=== PATIENT | female | born 1955 | race Caucasian/White ===

== ENCOUNTER 2024-04-13 13:16 | Inpatient (IN) ==
[2024-04-13 15:01] LABS: ABS Basophils 0.1 10^3/uL (0.0-0.1); ABS Lymphocytes 0.2 10^3/uL (1.0-4.8); ABS Neutrophils 8.8 10^3/uL (1.5-7.6); ABS Nucleated RBC 0.01 10^3/ul; Eosinophil % 0.1 %; Hematocrit 32.9 % (35-45); Hemoglobin 11.3 g/dL (11.5-14.3); Lymphocyte % 2.5 %; Mean Corpuscular Hemoglobin 31.7 pg (27-33); Mean Corpuscular Hgb Conc 34.3 g/dL (31-36); Mean Corpuscular Volume 92.3 fL (80-97); Mean Platelet Volume 7.9 fL (7.5-11.2); Platelet Count 318 10^3/uL (150-450); Red Blood Count 3.56 10^6/uL (3.63-4.92); Red Cell Distribution Width 13.3 % (12-17); White Blood Count 10.2 10^3/uL (3.8-11.8)
[2024-04-13] MEDS: Ondansetron 4 mg VIAL 2 MG/ML 2 ml VIAL IV ONE ×3 (15:14→23:21)
[2024-04-13] MEDS: Lactated Ringers 1000 ml BAG IV.FLUID IV ONE (15:14)
[2024-04-13 15:48] LABS: C Reactive Protein 110.89 mg/L (<8.01); Lipase < 10 U/L (11.0-82.0); Magnesium 1.7 mg/dL (1.9-2.7)
[2024-04-13 17:02] LABS: Urine Appearance Clear; Urine Bilirubin Negative (Negative); Urine Blood Negative (Negative); Urine Color Light-Yellow; Urine Glucose Negative (Negative); Urine Ketones 1+ (Negative); Urine Nitrite Negative (Negative); Urine Protein Negative (Negative); Urine Specific Gravity 1.006 (1.002-1.030); Urine Urobilinogen Negative (Negative); Urine pH 5.5 (5.0-8.0)
[2024-04-13] MEDS: Magnesium Sulfate 2 gm BAG 2 GM/50 ML BAG IVPB ONE (17:08)
[2024-04-13 18:31] LABS: ALT 11 U/L (7-52); AST 17 U/L (13-39); Albumin 3.9 g/dL (3.2-5.2); Albumin/Globulin Ratio 2.1 (1-3); Alkaline Phosphatase 91 U/L (35-149); Anion Gap 13 mmol/L (2-16); Blood Urea Nitrogen 15 mg/dL (6-24); CO2 Carbon Dioxide 24 mmol/L (22-32); Chloride 106 mmol/L (101-111); Creatinine, Serum 0.84 mg/dL (0.51-0.95); Globulin 1.9 g/dL (2-4); Glucose 116 mg/dL (70-100); Potassium 4.1 mmol/L (3.5-5.0); Sodium 143 mmol/L (135-145); Total Bilirubin 0.6 mg/dL (0.2-1.0); Total Protein 5.8 g/dL (6.4-8.9); eGFR CKD-EPI 74.7 (>60)
[2024-04-13] MEDS: Iodixanol 320 (CONTRAST) 100 ML SDV IV ONE (20:35)
[2024-04-13] MEDS ORDERED: Morphine 2 MG/ML SYRINGE IV PRN (22:59)
[2024-04-13 23:00] LABS: LDH 194 U/L (140-271)
[2024-04-13] MEDS: Pantoprazole VIAL 40 MG VIAL IV SCH (23:20)
[2024-04-14] MEDS: HYDROmorphone 1 MG/1 ML SYRINGE IV SLOW PU PRN ×2 (01:50→16:04)
[2024-04-14] MEDS: cefTRIAXone 1 gm/50 mL D5W 1 GM/50 ML BAG IV SCH (03:02)
[2024-04-14] MEDS: metroNIDAZOLE IV 500 MG/100ML 500 MG/100 ML BAG IVPB SCH (03:55)
[2024-04-14] MEDS: Ondansetron 4 mg VIAL 2 MG/ML 2 ml VIAL IV PRN (04:49)
[2024-04-14 05:53] LABS: ABS Lymphocytes 0.3 10^3/uL (1.0-4.8); ABS Monocytes 0.9 10^3/uL (0.0-0.9); Eosinophil % 0.3 %; Hematocrit 31.9 % (35-45); Lymphocyte % 3.4 %; Mean Corpuscular Hemoglobin 31.6 pg (27-33); Mean Corpuscular Hgb Conc 34.3 g/dL (31-36); Mean Corpuscular Volume 92.2 fL (80-97); Mean Platelet Volume 7.9 fL (7.5-11.2); Platelet Count 322 10^3/uL (150-450); Red Blood Count 3.46 10^6/uL (3.63-4.92); White Blood Count 9.3 10^3/uL (3.8-11.8)
[2024-04-14 06:13] LABS: Albumin 3.7 g/dL (3.2-5.2); Albumin/Globulin Ratio 1.9 (1-3); Calcium 8.5 mg/dL (8.6-10.3); Creatinine, Serum 0.85 mg/dL (0.51-0.95); Potassium 3.9 mmol/L (3.5-5.0); Total Bilirubin 0.4 mg/dL (0.2-1.0); Total Protein 5.7 g/dL (6.4-8.9); eGFR CKD-EPI 73.7 (>60)
[2024-04-14] MEDS: Iodixanol 320 (CONTRAST) 100 ML SDV IV ONE (06:47)
[2024-04-14] MEDS ORDERED: Omeprazole 20 mg CAP (NF) PO SCH (09:00)
[2024-04-14] MEDS: Dextrose 50% Syringe 50 ml 25 GM/50 ML SYRINGE IV PUSH PRN (14:08)
[2024-04-14 14:46] LABS: Body Fluid Total Nucleated 944 /mcL
[2024-04-14 14:48] LABS: Body Fluid Appearance Cloudy; Body Fluid Source Pleural Fluid
[2024-04-14 14:49] LABS: Body Fluid Color Amber
[2024-04-14 15:19] LABS: Body Fluid Band 1 %; Body Fluid Meta 1 %; Body Fluid Mono 22 %; Body Fluid Total Cells Counted 200; Body Fluid Variant Lymph 1 %
[2024-04-15 08:56] LABS: Hematocrit 32.1 % (35-45); Hemoglobin 11.1 g/dL (11.5-14.3); Mean Corpuscular Hemoglobin 31.5 pg (27-33); Mean Corpuscular Hgb Conc 34.6 g/dL (31-36); Mean Corpuscular Volume 91.1 fL (80-97); Mean Platelet Volume 8.4 fL (7.5-11.2); Platelet Count 325 10^3/uL (150-450); Red Blood Count 3.52 10^6/uL (3.63-4.92); Red Cell Distribution Width 13.5 % (12-17); White Blood Count 5.9 10^3/uL (3.8-11.8)
[2024-04-15] MEDS ORDERED: Insulin LISPRO FOR INSULIN PUMP SUBCUT SCH (15:00)
[2024-04-16] MEDS ORDERED: PEG 3000 GI LAVAGE 1 GALLON PO ONE (16:00)
[2024-04-17] MEDS ORDERED: PEG 3000 GI LAVAGE 1 GALLON PO ONE (03:00)
[2024-04-17 06:27] LABS: Mean Platelet Volume 7.9 fL (7.5-11.2); Platelet Count 331 10^3/uL (150-450)
[2024-04-17 06:42] LABS: INR 1.42 (0.85-1.14)
[2024-04-17 14:12] LABS: Lactate Dehydrogenase, BF 160 U/L
[2024-04-17] MEDS: PEG 3000 GI LAVAGE 1 GALLON PO ONE ×2 (16:47→22:55)
[2024-04-17] MEDS: fentaNYL 100 mcg/2 ml 50 MCG/ML VIAL ONE (21:10)
[2024-04-18 06:34] LABS: Hematocrit 30.1 % (35-45); Hemoglobin 10.4 g/dL (11.5-14.3); Mean Corpuscular Hemoglobin 31.6 pg (27-33); Mean Corpuscular Hgb Conc 34.6 g/dL (31-36); Mean Corpuscular Volume 91.2 fL (80-97); Platelet Count 295 10^3/uL (150-450); White Blood Count 5.5 10^3/uL (3.8-11.8)
[2024-04-18 07:12] LABS: Albumin 3.3 g/dL (3.2-5.2); Albumin/Globulin Ratio 1.8 (1-3); C Reactive Protein 37.89 mg/L (<8.01); Calcium 7.9 mg/dL (8.6-10.3); Creatinine, Serum 0.74 mg/dL (0.51-0.95); Globulin 1.8 g/dL (2-4); Magnesium 1.9 mg/dL (1.9-2.7); Phosphorus 3.3 mg/dL (2.5-5.0); Potassium 3.8 mmol/L (3.5-5.0); Total Bilirubin 0.3 mg/dL (0.2-1.0); Total Protein 5.1 g/dL (6.4-8.9)
[2024-04-18 07:28] LABS: ABS Basophils 0.1 10^3/uL (0.0-0.1); ABS Lymphocytes 0.4 10^3/uL (1.0-4.8); ABS Monocytes 0.9 10^3/uL (0.0-0.9); ABS Neutrophils 4.1 10^3/uL (1.5-7.6); ABS Nucleated RBC 0.01 10^3/ul; Eosinophil % 0.9 %; Lymphocyte % 6.9 %; Nucleated Red Blood Cells % 0.1 %/100WBC (0.0-0.8); RBC Morphology Normal (Normal)
[2024-04-18 09:54] LABS: Fluid Type, Protein, Total PLEURAL FLUID; Total Protein, BF 4.1 g/dL
[2024-04-18] MEDS ORDERED: fentaNYL 100 mcg/2 ml 50 MCG/ML VIAL ONE ×2 (15:15→16:50)
[2024-04-18] MEDS ORDERED: Glycopyrrolate IV 0.2 MG/ML 1 ML VIAL ONE (15:15)
[2024-04-18] MEDS ORDERED: Ondansetron 4 mg VIAL 2 MG/ML 2 ml VIAL ONE ×2 (15:15→17:30)
[2024-04-18] MEDS ORDERED: Lidocaine 2% PF 5 ML VIAL ONE (15:15)
[2024-04-18] MEDS ORDERED: Midazolam 2 mg/2 ml VIAL 1 mg/ml 2 ml VIAL (2 mg) ONE (15:36)
[2024-04-18] MEDS ORDERED: Propofol 10 MG/ML 20 ML BTL ONE (15:46)
[2024-04-18] MEDS: fentaNYL 100 mcg/2 ml 50 MCG/ML VIAL IV PRN (16:54)
[2024-04-18] MEDS ORDERED: Naloxone 0.4 mg VIAL 0.4 mg/ml 1 ml VIAL IV PRN (16:55)
[2024-04-18] MEDS ORDERED: HYDROmorphone 1 MG/1 ML SYRINGE ONE (17:30)
[2024-04-18 18:15] LABS: Hematocrit 32.9 % (35-45); Hemoglobin 11.3 g/dL (11.5-14.3); Mean Corpuscular Hemoglobin 31.2 pg (27-33); Mean Corpuscular Hgb Conc 34.2 g/dL (31-36); Mean Corpuscular Volume 91.2 fL (80-97); Mean Platelet Volume 8.3 fL (7.5-11.2); Platelet Count 322 10^3/uL (150-450); Red Blood Count 3.61 10^6/uL (3.63-4.92); Red Cell Distribution Width 13.2 % (12-17); White Blood Count 5.8 10^3/uL (3.8-11.8)
[2024-04-19 06:37] LABS: ABS Basophils 0.1 10^3/uL (0.0-0.1); ABS Eosinophils 0.1 10^3/uL (0.0-0.5); ABS Lymphocytes 0.3 10^3/uL (1.0-4.8); ABS Monocytes 1.1 10^3/uL (0.0-0.9); ABS Neutrophils 5.1 10^3/uL (1.5-7.6); Eosinophil % 1.2 %; Hematocrit 30.4 % (35-45); Hemoglobin 10.6 g/dL (11.5-14.3); Lymphocyte % 4.8 %; Mean Corpuscular Hemoglobin 31.8 pg (27-33); Mean Corpuscular Hgb Conc 34.8 g/dL (31-36); Mean Corpuscular Volume 91.1 fL (80-97); Mean Platelet Volume 8.2 fL (7.5-11.2); Platelet Count 310 10^3/uL (150-450); Red Blood Count 3.34 10^6/uL (3.63-4.92); White Blood Count 6.6 10^3/uL (3.8-11.8)
[2024-04-19 07:17] LABS: Albumin 3.2 g/dL (3.2-5.2); Albumin/Globulin Ratio 1.8 (1-3); C Reactive Protein 52.87 mg/L (<8.01); Calcium 7.9 mg/dL (8.6-10.3); Creatinine, Serum 0.7 mg/dL (0.51-0.95); Globulin 1.8 g/dL (2-4); Magnesium 1.8 mg/dL (1.9-2.7); Total Bilirubin 0.3 mg/dL (0.2-1.0)
[2024-04-19] MEDS: Magnesium Sulfate 2 gm BAG 2 GM/50 ML BAG IVPB ONE (14:42)
[2024-04-19 23:50] LABS: Calprotectin >3000 mcg/g
[2024-04-20 05:59] LABS: Hematocrit 33.6 % (35-45); Hemoglobin 11.5 g/dL (11.5-14.3); Mean Corpuscular Hemoglobin 31.2 pg (27-33); Mean Corpuscular Hgb Conc 34.2 g/dL (31-36); Mean Corpuscular Volume 91.2 fL (80-97); Mean Platelet Volume 7.9 fL (7.5-11.2); Platelet Count 352 10^3/uL (150-450); Red Blood Count 3.68 10^6/uL (3.63-4.92); Red Cell Distribution Width 13.4 % (12-17); White Blood Count 5.2 10^3/uL (3.8-11.8)
[2024-04-20 06:38] LABS: Albumin 3.5 g/dL (3.2-5.2); Albumin/Globulin Ratio 1.8 (1-3); C Reactive Protein 55.84 mg/L (<8.01); Calcium 8.5 mg/dL (8.6-10.3); Creatinine, Serum 0.75 mg/dL (0.51-0.95); Globulin 1.9 g/dL (2-4); Magnesium 2.3 mg/dL (1.9-2.7); Potassium 5.1 mmol/L (3.5-5.0); Total Bilirubin 0.3 mg/dL (0.2-1.0); Total Protein 5.4 g/dL (6.4-8.9); eGFR CKD-EPI 85.6 (>60)
[2024-04-20 07:39] LABS: ABS Basophils 0.1 10^3/uL (0.0-0.1); ABS Eosinophils 0.1 10^3/uL (0.0-0.5); ABS Lymphocytes 0.4 10^3/uL (1.0-4.8); ABS Neutrophils 3.5 10^3/uL (1.5-7.6); Eosinophil % 2.4 %; Lymphocyte % 7.8 %; Nucleated Red Blood Cells % 0.1 %/100WBC (0.0-0.8); RBC Morphology Normal (Normal)
[2024-04-20] MEDS ORDERED: Famotidine IV 10 MG/ML 2 ml VIAL (20 mg) IV PRN (09:30)
[2024-04-20] MEDS ORDERED: methylPREDNISolone SOD SUCC 125 mg 2 ML VIAL IV PRN (09:30)
[2024-04-20] MEDS: Dexamethasone IV 4 MG/ML VIAL 1 ml VIAL IV SLOW PU ONE (11:01)
[2024-04-20] MEDS: PALONOSETRON HCL 0.05 MG/ML (0.25 MG) SYRINGE (0.05 MG/ML) IV ONE (11:06)
[2024-04-20] MEDS: Famotidine IV 10 MG/ML 2 ml VIAL (20 mg) IV ONE (11:09)
[2024-04-20] MEDS: APREPITANT 130 MG/18 ML VIAL IV ONE (11:14)
[2024-04-20] MEDS: NS 0.9% 1000 ml BAG 1,000 ML IV SCH (11:30)
[2024-04-20] MEDS: Lidocaine PATCH 5% PATCH TRANSDERM ONE (11:36)
[2024-04-20] MEDS: NS 0.9% IVPB ONE ×2 (12:36→15:50)
[2024-04-20] MEDS: PACLITAXEL IVPB ONE (12:36)
[2024-04-20] MEDS: Albuterol 2.5mg/3 ml (0.083%) NEB.SOLN INH PRN (14:54)
[2024-04-20] MEDS: CARBOPLATIN IVPB ONE (15:50)
[2024-04-20 16:21] LABS: Albumin 3.5 g/dL (3.2-5.2); Albumin/Globulin Ratio 1.8 (1-3); Calcium 8.1 mg/dL (8.6-10.3); Creatinine, Serum 0.71 mg/dL (0.51-0.95); Globulin 1.9 g/dL (2-4); Magnesium 1.9 mg/dL (1.9-2.7); Phosphorus 1.7 mg/dL (2.5-5.0); Potassium 3.6 mmol/L (3.5-5.0); Total Bilirubin 0.4 mg/dL (0.2-1.0); Total Protein 5.4 g/dL (6.4-8.9); eGFR CKD-EPI 91.4 (>60)
[2024-04-21 07:03] LABS: ABS Lymphocytes 0.2 10^3/uL (1.0-4.8); ABS Monocytes 0.1 10^3/uL (0.0-0.9); Hematocrit 33.4 % (35-45); Hemoglobin 11.5 g/dL (11.5-14.3); Lymphocyte % 4.5 %; Mean Corpuscular Hemoglobin 31.3 pg (27-33); Mean Corpuscular Hgb Conc 34.4 g/dL (31-36); Mean Platelet Volume 8.9 fL (7.5-11.2); Nucleated Red Blood Cells % 0.1 %/100WBC (0.0-0.8); Platelet Count 307 10^3/uL (150-450); Red Blood Count 3.67 10^6/uL (3.63-4.92); Red Cell Distribution Width 13.1 % (12-17); White Blood Count 4.2 10^3/uL (3.8-11.8)
[2024-04-21 08:34] LABS: ALT 10 U/L (7-52); Albumin 3.6 g/dL (3.2-5.2); Albumin/Globulin Ratio 1.7 (1-3); Alkaline Phosphatase 79 U/L (35-149); Anion Gap 12 mmol/L (2-16); Blood Urea Nitrogen 9 mg/dL (6-24); C Reactive Protein 33.93 mg/L (<8.01); CO2 Carbon Dioxide 23 mmol/L (22-32); Calcium 8.1 mg/dL (8.6-10.3); Chloride 106 mmol/L (101-111); Creatinine, Serum 0.59 mg/dL (0.51-0.95); Globulin 2.1 g/dL (2-4); Glucose 126 mg/dL (70-100); Sodium 141 mmol/L (135-145); Total Bilirubin 0.4 mg/dL (0.2-1.0); Total Protein 5.7 g/dL (6.4-8.9); eGFR CKD-EPI 96.9 (>60)
[2024-04-21 09:42] LABS: Magnesium 2.1 mg/dL (1.9-2.7)
[2024-04-21 10:50] LABS: Potassium Redraw 3.9 mmol/L (3.5-5.0)
[2024-04-21] MEDS: Diphenoxylat/Atrop 2.5-0.025mg TAB PO ONE (11:13)
[2024-04-21] MEDS: Diphenoxylat/Atrop 2.5-0.025mg TAB PO PRN (18:32)
[2024-04-22 07:40] LABS: Calcium 7.8 mg/dL (8.6-10.3); Creatinine, Serum 0.69 mg/dL (0.51-0.95); Potassium 4.2 mmol/L (3.5-5.0); eGFR CKD-EPI 93.3 (>60)
[2024-04-22] MEDS: Magic MouthWash2-BEN/MAAL/LIDO/NYST 240 ML BTL (alt formulation) SWISH SPIT SCH (19:32)
[2024-04-23] MEDS: CMCS: Ketorolac 10 mg TAB (NF) PO PRN (05:49)
[2024-04-23 06:06] LABS: Hematocrit 32.2 % (35-45); Hemoglobin 10.6 g/dL (11.5-14.3); Mean Corpuscular Hemoglobin 29.9 pg (27-33); Mean Corpuscular Hgb Conc 33.1 g/dL (31-36); Mean Corpuscular Volume 90.4 fL (80-97); Mean Platelet Volume 8.9 fL (7.5-11.2); Platelet Count 291 10^3/uL (150-450); Red Blood Count 3.56 10^6/uL (3.63-4.92); Red Cell Distribution Width 13.5 % (12-17); White Blood Count 30.7 10^3/uL (3.8-11.8)
[2024-04-23 06:26] LABS: Calcium 8.2 mg/dL (8.6-10.3); Creatinine, Serum 0.7 mg/dL (0.51-0.95); Magnesium 1.8 mg/dL (1.9-2.7); Phosphorus 3.2 mg/dL (2.5-5.0); Potassium 4.2 mmol/L (3.5-5.0)
[2024-04-23 07:06] LABS: ABS Eosinophils 0.1 10^3/uL (0.0-0.5); ABS Lymphocytes 0.3 10^3/uL (1.0-4.8); ABS Monocytes 0.2 10^3/uL (0.0-0.9); ABS Nucleated RBC 0.01 10^3/ul; Anisocytosis 1+; Eosinophil % 0.4 %; Lymphocyte % 1.1 %
[2024-04-23] MEDS: Magnesium Sulfate 2 gm BAG 2 GM/50 ML BAG IVPB ONE (09:40)
[2024-04-23] MEDS ORDERED: Naloxone Nasal Spray 4 MG/0.1 ML NASAL.SPR INTRANASAL PRN (11:19)
[2024-04-23] MEDS: oxyCODONE SR 15 mg TAB PO SCH (12:47)
[2024-04-23 13:51] VITALS: BP 102/70
[2024-04-23] MEDS ORDERED: Morphine ER 15 mg TAB ** extended release PO ONE (13:53)
[2024-04-24 13:33] LABS: Glucoamylase 41.8 (>=8.0); Maltase 219.6 (>=70.0); Palatinase 20.4 (>=6.0); Sucrase >73.8 (>=19.0)
== END 2024-04-23 15:56 | disposition home or self-care (01) | DRG 378 ==
LOC: EDHOLD 13:16 → ED 13:16 → SUATTDRO 22:27 → MEDTELE 04-14 00:02 → SUATTDRO 04-16 14:53
PROVIDERS: ADMIT Internal Medicine; ATTEND Internal Medicine